=== PATIENT | male | born 1940 | race Caucasian/White ===

== ENCOUNTER 2018-08-21 07:38 | Outpatient (CLI) | payer MEDICARE, BC | END 2018-08-21 23:59 | disposition home or self-care (01) | LOC: PETCFH 07:38 | PROVIDERS: ATTEND Internal Medicine | DX: Z08 Encounter for follow-up examination after completed treatment for malignant neoplasm (principal); N28.1 Cyst of kidney, acquired; Z85.038 Personal history of other malignant neoplasm of large intestine; Z90.49 Acquired absence of other specified parts of digestive tract; Z93.3 Colostomy status | CPT/HCPCS: 78815; A9552 ==

== ENCOUNTER 2018-08-22 08:39 | Day surgery (SDC) | payer MEDICARE, BC ==
[~2018-08-22] VITALS: Ht 182.9 cm; Wt 83.3 kg
[2018-08-22 09:14] VITALS: BP 136/92
[2018-08-22] MEDS ORDERED: SODIUM CHLORIDE 0.9% 1,000 ML IV SCH (09:30)
[2018-08-22] MEDS ORDERED: VANCOMYCIN PMX 1GM/200ML 200 ML IV ONE (09:30)
[2018-08-22] MEDS ORDERED: LIDOCAINE 1%, 20ML ONE (10:17)
[2018-08-22] MEDS ORDERED: FENTANYL PF 100 MCG/2ML ONE (10:23)
[2018-08-22] MEDS ORDERED: FLUMAZENIL 0.1 MG/1 ML, 5ML ONE (10:24)
[2018-08-22] MEDS ORDERED: MIDAZOLAM 1 MG/ML, 5ML ONE (10:24)
[2018-08-22] MEDS ORDERED: NALOXONE 1 MG/ML, 2ML ONE (10:24)
== END 2018-08-22 13:00 | disposition home or self-care (01) ==
LOC: OUT 08:39
PROVIDERS: ATTEND Internal Medicine
DX: Z45.2 Encounter for adjustment and management of vascular access device (principal); C18.7 Malignant neoplasm of sigmoid colon; E78.5 Hyperlipidemia, unspecified; Z79.82 Long term (current) use of aspirin; Z88.0 Allergy status to penicillin; Z87.891 Personal history of nicotine dependence; Z98.890 Other specified postprocedural states
CPT/HCPCS: 36561; 76937; 77001; 99156; 99157; C1788; J1642; J2250; J3010; J3370; J7030; J2310